=== PATIENT | female | born 1945 | race Caucasian/White ===

== ENCOUNTER 2020-12-12 08:06 | Emergency (ER) | payer MEDICARE, OTHER ==
[~2020-12-12] VITALS: Ht 157.5 cm; Wt 58.5 kg
--- NOTE | 2020-12-12 08:24 | NUR ---
[id number] FOR VOMITING X 1 WK. PT WAS SEEN AT [facility] AT [facility] TWICE THIS WK FOR N/V. ADMITS SMOKING MARIJUANA REGULARLY. PT AAOX4, VSS. RR EVEN & UNLABORED. DENIES CP, SOB, DIZZINESS AT THIS TIME. AWAITING EVAL BY DELFIN. WILL CONT TO MONITOR.
[2020-12-12] MEDS ORDERED: IV NS 0.9% 500 ML BAG IV ONE (08:30)
[2020-12-12] MEDS ORDERED: METOCLOPRAMIDE HCL 10 MG/2 ML VIAL IV ONE (08:30)
[2020-12-12] MEDS ORDERED: FAMOTIDINE/PF INJ 20 MG/2 ML VIAL IV ONE ×2 (08:30→08:32)
[2020-12-12] MEDS ORDERED: ONDANSETRON HCL/PF 4 MG/2 ML VIAL IVP ONE (08:30)
[2020-12-12] MEDS ORDERED: ONDANSETRON HCL/PF 4 MG/2 ML VIAL ONE (08:31)
[2020-12-12] MEDS ORDERED: METOCLOPRAMIDE HCL 10 MG/2 ML VIAL ONE (08:32)
[2020-12-12 08:43] LABS: BASOPHILS # (AUTO) 0.1 /CMM (0.0-0.2); BASOPHILS % (AUTO) 0.8 % (0.0-2.0); EOSINOPHILS % (AUTO) 0.5 % (0.0-6.0); HEMATOCRIT 42 % (33-45); HEMOGLOBIN 13.5 g/dL (11.5-14.8); LYMPHOCYTES # (AUTO) 2.1 /CMM (0.8-4.8); LYMPHOCYTES % (AUTO) 25.7 % (20.0-44.0); MEAN CORPUSCULAR HGB CONC 32 g/dl (31.0-36.0); MEAN CORPUSCULAR VOLUME 77 fL (82-100); MONOCYTES # (AUTO) 0.4 /CMM (0.1-1.30); MONOCYTES % (AUTO) 4.7 % (2.0-12.0); NEUTROPHILS # (AUTO) 5.6 /CMM (1.8-8.9); NEUTROPHILS % (AUTO) 68.3 % (43.0-81.0); PLATELET COUNT (AUTO) 360 /CMM (150-450); WHITE BLOOD COUNT (AUTO) 8.3 K/uL (4.3-11.0)
[2020-12-12 09:20] LABS: ALANINE AMINOTRANSFERASE 29 U/L (12-78); ALBUMIN 3.9 g/dL (3.4-5.0); ALKALINE PHOSPHATASE 105 U/L (46-116); ASPARTATE AMINOTRANSFERASE 40 U/L (15-37); BILIRUBIN,TOTAL 0.6 mg/dL (0.2-1.0); CALCIUM, SERUM 9.7 mg/dL (8.5-10.1); CARBON DIOXIDE 20 mmol/L (21-32); CHLORIDE 101 mmol/L (98-107); CREATININE 1.2 mg/dL (0.6-1.3); GLUCOSE 160 mg/dL (74-106); LIPASE 101 U/L (73-393); SODIUM SERUM 138 mmol/L (136-145); TOTAL PROTEIN, SERUM 8.8 g/dL (6.4-8.2); UREA NITROGEN, BLOOD 11 mg/dL (7-18)
[2020-12-12 09:37] LABS: BILIRUBIN,DIRECT 0.1 mg/dL (0.0-0.2)
[2020-12-12] MEDS ORDERED: METO-295 PO (10:42)
[2020-12-12] MEDS ORDERED: ONDA4TAB11 PO (10:42)
--- NOTE | 2020-12-12 11:31 | NUR ---
CALLED [facility] FOR TRANSPORT TO [facility]. ETA 30-45 MINUTES.
--- NOTE | 2020-12-12 11:48 | NUR ---
Patient discharged to home in stable condition. Written and verbal after care instructions given. Patient verbalizes understanding of instruction. IV removed. Catheter intact and site benign. Pressure and 4x4 applied to site. No bleeding noted.
[2020-12-12 11:49] VITALS: BP 108/67
== END 2020-12-12 11:49 | disposition home or self-care (01) ==
LOC: ER 08:11
DX: R11.10 Vomiting, unspecified (principal); F12.10 Cannabis abuse, uncomplicated; Z60.2 Problems related to living alone
CPT/HCPCS: 36415; 80048; 80076; 83690; 84484; 85025; 96374; 96375; 99284; J2405; J2765; J3490; J7040

== ENCOUNTER 2021-11-22 15:30 | Emergency (ER) | payer MEDICARE, OTHER ==
[~2021-11-22] VITALS: Ht 165.1 cm; Wt 55.8 kg
[~2021-11-22 15:30] MED LIST: METO-295 PO; ONDA4TAB11 PO
--- NOTE | 2021-11-22 16:00 | NUR ---
ANETTE RA889 From Home "Generalized weakness xcouple days, No appetite, BS-94". PLACED ON BED, AAOX2, RESPONDS TO VERBAL STIMULI, COMPLAINS OF ABDOMINAL PAIN.
--- NOTE | 2021-11-22 16:15 | NUR ---
AT BED SIDE
--- NOTE | 2021-11-22 16:25 | NUR ---
BLOOD DRAWN AND SENT TO LAB
--- NOTE | 2021-11-22 16:27 | NUR ---
PATIENT WENT FOR CT [facility]BD[facility]
[2021-11-22] MEDS ORDERED: IV NS 0.9% 1,000 ML IV ONE (16:30)
[2021-11-22 16:31] LABS: BASOPHILS % (AUTO) 0.7 % (0.0-2.0); EOSINOPHILS % (AUTO) 3.7 % (0.0-6.0); HEMATOCRIT 37 % (33-45); HEMOGLOBIN 12.2 g/dL (11.5-14.8); LYMPHOCYTES % (AUTO) 41.6 % (20.0-44.0); MEAN CORPUSCULAR HGB CONC 33 g/dl (31.0-36.0); MEAN CORPUSCULAR VOLUME 83 fL (82-100); MONOCYTES # (AUTO) 0.4 K/uL (0.1-1.30); MONOCYTES % (AUTO) 5.2 % (2.0-12.0); NEUTROPHILS # (AUTO) 3.5 K/uL (1.8-8.9); NEUTROPHILS % (AUTO) 48.8 % (43.0-81.0); PLATELET COUNT (AUTO) 205 K/uL (150-450); RED BLOOD CELL COUNT(AUTO) 4.48 MIL/uL (4.0-5.2); WHITE BLOOD COUNT (AUTO) 7.2 K/uL (4.3-11.0)
--- NOTE | 2021-11-22 16:35 | NUR ---
PATIENT BACK FROM CT
[2021-11-22] MEDS ORDERED: IOHEXOL-300 100 ML VIAL IV ONE (17:19)
[2021-11-22 19:03] LABS: SERUM AMMONIA 17 umol/L (11-32)
[2021-11-22 19:08] LABS: ALANINE AMINOTRANSFERASE 27 U/L (12-78); ALBUMIN 3.5 g/dL (3.4-5.0); ALKALINE PHOSPHATASE 73 U/L (46-116); ASPARTATE AMINOTRANSFERASE 40 U/L (15-37); BILIRUBIN,DIRECT 0.1 mg/dL (0.0-0.2); BILIRUBIN,TOTAL 0.4 mg/dL (0.2-1.0); CHLORIDE 107 mmol/L (98-107); CREATININE 0.9 mg/dL (0.6-1.3); GLUCOSE 77 mg/dL (74-106); POTASSIUM 3.6 mmol/L (3.5-5.1); SODIUM SERUM 142 mmol/L (136-145); TOTAL PROTEIN, SERUM 7.4 g/dL (6.4-8.2); UREA NITROGEN, BLOOD 15 mg/dL (7-18)
--- NOTE | 2021-11-22 19:11 | NUR ---
pt's landlord: karsten patterson [phone] & stated pt 's family is not really involved w/ her care & alos stated pt lives w/ her.
--- NOTE | 2021-11-22 19:41 | NUR ---
PATIENT WENT FOR CT CHEST VIA [facility]
[2021-11-22] MEDS ORDERED: LEVO750T46 PO (20:40)
[2021-11-22 20:50] LABS: CALCIUM, SERUM 9.2 mg/dL (8.5-10.1); CARBON DIOXIDE 22 mmol/L (21-32)
--- NOTE | 2021-11-22 20:56 | NUR ---
[facility] ETA 1 HOUR.
[2021-11-22 22:03] LABS: CREATINE KINASE, TOTAL 335 U/L (26-192)
--- NOTE | 2021-11-22 22:20 | NUR ---
IV removed. Catheter intact and site benign. Pressure and 4x4 applied to site. No bleeding noted.Patient discharged to home in stable condition. Written and verbal after care instructions given. Patient verbalizes understanding of instruction.
[2021-11-22 22:35] VITALS: BP 160/90
== END 2021-11-22 22:25 | disposition home or self-care (01) ==
LOC: ER 15:35
DX: R53.1 Weakness (principal); J18.9 Pneumonia, unspecified organism; Z86.69 Personal history of other diseases of the nervous system and sense organs; Z60.2 Problems related to living alone; Z79.899 Other long term (current) drug therapy
CPT/HCPCS: 71045; 71260; 74176; 76705; 80048; 80076; 82140; 82550; 82962; 83880; 84443; 84484; 85025; 96360; 99285; J7030; Q9967; 36415; 82553

== ENCOUNTER 2022-01-14 15:43 | Emergency (ER) | payer MEDICARE, OTHER ==
[~2022-01-14] VITALS: Ht 162.6 cm; Wt 52.6 kg
[~2022-01-14 15:43] MED LIST changes: +LEVO750T46 PO
--- NOTE | 2022-01-14 16:00 | NUR ---
[id number] FOR C/O LEFT FOOT, RIGHT SHOULDER, AND RIGHT HIP PAIN. PAIN 10/10 PER PT. VERBALLY RESPONSIVE. TO ER BED 15.
[2022-01-14 16:49] VITALS: BP 126/77
[2022-01-14] MEDS ORDERED: HYDROCODONE/APAP 5/325MG TABLET ONE (16:51)
[2022-01-14] MEDS ORDERED: HYDROCODONE/APAP 5/325MG TABLET PO ONE (17:00)
--- NOTE | 2022-01-14 17:44 | NUR ---
1930 ETA BLS TRANSPORT VIA [facility].
--- NOTE | 2022-01-14 18:06 | NUR ---
PT REPORT GIVEN TO VALENTIN DON SALES REPRESENTATIVE [employer] FIBERS AT [facility] ([phone]).
--- NOTE | 2022-01-14 18:49 | NUR ---
Patient discharged back to [facility] in stable condition. Endorsement given to EMT. Written and verbal after care instructions given. Patient verbalizes understanding of instruction, unable to sign form.
== END 2022-01-14 18:53 ==
LOC: ER 15:53
DX: G89.29 Other chronic pain (principal); M25.572 Pain in left ankle and joints of left foot; K21.9 Gastro-esophageal reflux disease without esophagitis; Z86.69 Personal history of other diseases of the nervous system and sense organs; Z87.440 Personal history of urinary (tract) infections; Z79.899 Other long term (current) drug therapy
CPT/HCPCS: 73610-TC

== ENCOUNTER 2022-10-27 16:58 | Inpatient (IN) | payer MEDICARE, OTHER ==
[~2022-10-27] VITALS: Ht 157.5 cm; Wt 59.6 kg
--- NOTE | 2022-10-27 17:30 | NUR ---
[id number] FOR RLQ ABDOMINAL PAIN AND DIARRHEA X 2 DAYS.
--- NOTE | 2022-10-27 18:54 | NUR ---
PHYLLIS [phone] FRIEND AND LANDLORD.
--- NOTE | 2022-10-27 18:54 | NUR ---
BLOOD DRAWN AND SENT TO LAB
--- NOTE | 2022-10-27 19:17 | NUR ---
URINE SAMPLE SENT TO LAB
--- NOTE | 2022-10-27 19:20 | NUR ---
PATIENT TAKEN TO CT VIA [facility]
[2022-10-27 19:21] LABS: BASOPHILS % (AUTO) 0.7 % (0.0-2.0); EOSINOPHILS % (AUTO) 1.9 % (0.0-6.0); HEMATOCRIT 46 % (33-45); HEMOGLOBIN 14.9 g/dL (11.5-14.8); LYMPHOCYTES # (AUTO) 2.1 K/uL (0.8-4.8); LYMPHOCYTES % (AUTO) 35.4 % (20.0-44.0); MEAN CORPUSCULAR HGB CONC 33 g/dl (31.0-36.0); MEAN CORPUSCULAR VOLUME 93 fL (82-100); MONOCYTES # (AUTO) 0.3 K/uL (0.1-1.30); MONOCYTES % (AUTO) 4.7 % (2.0-12.0); NEUTROPHILS # (AUTO) 3.4 K/uL (1.8-8.9); NEUTROPHILS % (AUTO) 57.3 % (43.0-81.0); PLATELET COUNT (AUTO) 192 K/uL (150-450); RED BLOOD CELL COUNT(AUTO) 4.93 MIL/uL (4.0-5.2); WHITE BLOOD COUNT (AUTO) 5.9 K/uL (4.3-11.0)
[2022-10-27 19:42] LABS: CALCIUM, SERUM 9.4 mg/dL (8.5-10.1); CREATININE 0.8 mg/dL (0.6-1.3)
[2022-10-27 19:49] LABS: ALBUMIN 3.7 g/dL (3.4-5.0); BILIRUBIN,DIRECT 0.2 mg/dL (0.0-0.2); BILIRUBIN,TOTAL 0.6 mg/dL (0.2-1.0); TOTAL PROTEIN, SERUM 8.3 g/dL (6.4-8.2)
[2022-10-27 20:23] LABS: BILIRUBIN,URINE NEGATIVE (NEGATIVE); COLOR,URINE YELLOW (YELLOW); LEUKOCYTE ESTERASE ,URINE NEGATIVE (NEGATIVE); NITRITE, URINE NEGATIVE (NEGATIVE); PROTEIN,URINE NEGATIVE (NEGATIVE); UGLUCOSE NEGATIVE (NEGATIVE)
[2022-10-27 20:34] LABS: BACTERIA,URINE None seen /HPF (None Seen); MUCUS,URINE Many /LPF (None Seen); RBC,URINE 0-2 /HPF (0-2); WBC,URINE 0-2 /HPF (0-3)
[2022-10-27] MEDS ORDERED: IOHEXOL-350 100 ML VIAL IV ONE (20:50)
[2022-10-27] MEDS ORDERED: IV NS 0.9% 250 ML IV ONE (20:51)
[2022-10-27] MEDS ORDERED: CT SWABBABLE VALVE TRANS SET 1 EA INFUS.SET MC ONE (20:51)
[2022-10-27] MEDS ORDERED: HYDROMORPHONE 1 MG/1 ML DISP.SYRIN IV ONE (21:00)
[2022-10-27] MEDS ORDERED: ONDANSETRON HCL/PF - ER 4 MG/2 ML VIAL IV ONE (21:00)
[2022-10-27] MEDS ORDERED: ONDANSETRON HCL/PF 4 MG/2 ML VIAL ONE (21:05)
[2022-10-27] MEDS ORDERED: HYDROMORPHONE 1 MG/1 ML DISP.SYRIN ONE (21:06)
[2022-10-27] MEDS ORDERED: AZITHROMYCIN 500 MG VIAL ONE (22:10)
[2022-10-27] MEDS ORDERED: CEFTRIAXONE 1GM BAG (ER ONLY) 50 ML IV ONE ×2 (22:10→22:30)
[2022-10-27] MEDS ORDERED: MAGNESIUM HYDROXIDE 30 ML UDC PO PRN (22:30)
[2022-10-27] MEDS ORDERED: ACETAMINOPHEN 325 MG TABLET PO PRN (22:30)
[2022-10-27] MEDS ORDERED: MAG HYDROX/AL HYDROX/SIMETH 30 ML UDC PO PRN (22:30)
[2022-10-27] MEDS ORDERED: ZOLPIDEM TARTRATE 5 MG TABLET PO PRN (22:30)
[2022-10-27] MEDS ORDERED: AZITHROMYCIN 500 MG in IV D5W 250 ML IV ONE (22:30)
[2022-10-27] MEDS ORDERED: METOCLOPRAMIDE HCL 10 MG TABLET PO PRN (22:30)
[2022-10-27] MEDS ORDERED: Z GUARD REMEDY 4 OZ OINT TP PRN (22:30)
[2022-10-27] MEDS: ONDANSETRON HCL/PF 4 MG/2 ML VIAL IVP PRN (23:30)
[2022-10-28] MEDS: ONDANSETRON HCL/PF 4 MG/2 ML VIAL IVP PRN ×2 (00:24→20:04)
--- NOTE | 2022-10-28 00:26 | NUR ---
REPORT GIVEN TO VALENTIN SHEETS
--- NOTE | 2022-10-28 00:50 | NUR ---
MS CLINICAL DATA MANAGEMENT DIRECTOR NOTE RECEIVED REPORT FROM ER NURSE JOSELYN. PT IS BEING ADMITTED IN ROOM 314-2 FOR COMMUNITY ACQUIRED PNA, AND RETRACTABLE ABDOMINAL PAIN. PT A/O X4, ABLE TO MAKE NEEDS KNOWN. ABLE TO AMBULATE TO BATHROOM. PT C/O PAIN TO ABDOMEN, AND NAUSEA. NO RESPIRATORY DISTRESS NOTED. PT ON ROOM AIR. IV ACCESS TO RIGHT AC #20G, IV INTACT, AND PATENT, INFUSING NS AT 75 ML/HR. SKIN ASSESSMENT COMPLETED. PT'S SKIN IS INTACT. PT'S BELONGING VERIFIED, AND BELONGING LIST SIGNED, AND PLACED IN CHART. SAFETY MEASURES IN PLACE: BED IN LOW POSITION, SR UP X2, CALL LIGHT WITHIN REACH. WILL CONTINUE TO MONITOR PT.
[2022-10-28] MEDS: MORPHINE SULFATE INJ 2 MG/ML DISP.SYRIN IV PRN ×4 (03:04→20:03)
--- NOTE | 2022-10-28 03:04 | NUR ---
MS RN NOTE PT REPORT PAIN TO ABDOMEN. MORPHINE ADMINISTERED TO PT FOR PAIN.
--- NOTE | 2022-10-28 06:45 | NUR ---
MS RN CLOSING NOTE LEFT PT AWAKE, RESTING IN BED. PT A/O X4, ABLE TO MAKE NEEDS KNOWN. ABLE TO AMBULATE TO BATHROOM. NO RESPIRATORY DISTRESS NOTED. PT ON ROOM AIR. IV ACCESS TO RIGHT AC #20G, IV INTACT, AND PATENT, INFUSING NS AT 75 ML/HR. SAFETY MEASURES IN PLACE: BED IN LOW POSITION, SR UP X2, CALL LIGHT WITHIN REACH. WILL ENDORSE PT TO AM SHIFT NURSE FOR ALEJANDRA.
[2022-10-28 07:32] LABS: BASOPHILS % (AUTO) 0.1 % (0.0-2.0); EOSINOPHILS % (AUTO) 1.1 % (0.0-6.0); HEMATOCRIT 44 % (33-45); HEMOGLOBIN 14.6 g/dL (11.5-14.8); LYMPHOCYTES # (AUTO) 0.6 K/uL (0.8-4.8); LYMPHOCYTES % (AUTO) 7.5 % (20.0-44.0); MEAN CORPUSCULAR HGB CONC 33 g/dl (31.0-36.0); MEAN CORPUSCULAR VOLUME 91 fL (82-100); MONOCYTES # (AUTO) 0.3 K/uL (0.1-1.30); MONOCYTES % (AUTO) 3.9 % (2.0-12.0); NEUTROPHILS # (AUTO) 6.9 K/uL (1.8-8.9); NEUTROPHILS % (AUTO) 87.4 % (43.0-81.0); PLATELET COUNT (AUTO) 176 K/uL (150-450); RED BLOOD CELL COUNT(AUTO) 4.86 MIL/uL (4.0-5.2); WHITE BLOOD COUNT (AUTO) 7.9 K/uL (4.3-11.0)
--- NOTE | 2022-10-28 07:40 | NUR ---
MS RN OPENING NOTE RECEIVED PATIENT AWAKE IN BED, PT A/O X4, ABLE TO MAKE NEEDS KNOWN. ABLE TO AMBULATE TO BATHROOM. NO RESPIRATORY DISTRESS NOTED. PT ON ROOM AIR. IV ACCESS TO RIGHT AC #20G, IV INTACT, PATENT, AND INFUSING WELL. NS AT 75 ML/HR. SAFETY MEASURES IN PLACE: BED IN LOW POSITION, SIDE RAILS UP X2, CALL LIGHT WITHIN REACH. WILL CONTINUE TO MONITOR PATIENT.
--- NOTE | 2022-10-28 07:50 | NUR ---
RN NOTES PATIENT FEELS NAUSEA AND ASKED FOR MEDICATION. METOCLOPRAMIDE 10MG GIVEN.
[2022-10-28 08:00] VITALS: BP 150/83
[2022-10-28 08:01] LABS: ALBUMIN 3.4 g/dL (3.4-5.0); BILIRUBIN,TOTAL 0.5 mg/dL (0.2-1.0); CREATININE 0.7 mg/dL (0.6-1.3); MAGNESIUM 1.6 mg/dL (1.8-2.4); PHOSPHORUS 3.6 mg/dL (2.5-4.9); POTASSIUM 3.3 mmol/L (3.5-5.1); TOTAL PROTEIN, SERUM 7.7 g/dL (6.4-8.2)
[2022-10-28] MEDS ORDERED: PANTOPRAZOLE 40 MG VIAL IV SCH (09:00)
--- NOTE | 2022-10-28 09:05 | NUR ---
RN NOTES PATIENT COMPLAINED OF ABDOMINAL PAIN AND ASKED FOR PAIN MEDICATION. RATE IT /. MORPHINE 2MG GIVEN. WILL CONTINUE TO MONITOR PATIENT.
[2022-10-28] MEDS ORDERED: GABA300C PO (09:42)
[2022-10-28] MEDS ORDERED: PANT40TA49 PO (09:42)
[2022-10-28] MEDS ORDERED: LOSA50TA39 PO (09:42)
[2022-10-28] MEDS ORDERED: [UNRECOGNIZED DRUG - CODE] PO (09:42)
[2022-10-28] MEDS ORDERED: OXCA300T15 PO (09:42)
[2022-10-28] MEDS ORDERED: LEVE500T20 PO (09:42)
[2022-10-28] MEDS ORDERED: METO50TA16 PO (09:42)
[2022-10-28] MEDS ORDERED: TEMA15CA PO (09:42)
[2022-10-28] MEDS ORDERED: TRAZ150T75 PO (09:42)
[2022-10-28] MEDS ORDERED: HYDR-4077 PO (09:42)
[2022-10-28] MEDS ORDERED: POTASSIUM CHLORIDE 20 MEQ POWDER PACKET PO ONE (11:00)
[2022-10-28] MEDS: Magnesium 1GM/D5W 100ML PREMIX 100 ML IV SCH ×2 (12:09→13:40)
[2022-10-28] MEDS ORDERED: TEMAZEPAM 15 MG CAPSULE PO PRN (12:30)
[2022-10-28] MEDS ORDERED: IBUPROFEN 600 MG TABLET PO PRN (13:00)
[2022-10-28] MEDS: hydrALAZINE HCL 50 MG TABLET PO SCH ×2 (13:41→17:27)
[2022-10-28] MEDS: GABAPENTIN 300 MG CAPSULE PO SCH ×2 (13:42→17:26)
[2022-10-28 16:00] VITALS: BP 149/81
[2022-10-28] MEDS: OXCARBAZEPINE 150 MG TABLET PO SCH (17:26)
[2022-10-28] MEDS: LEVETIRACETAM (250 MG) 250 MG TABLET PO SCH (17:26)
[2022-10-28] MEDS: METOPROLOL TARTRATE 50 MG TABLET PO SCH (17:27)
[2022-10-28] MEDS: LEVOFLOXACIN 500 MG /D5W 100ML 500 MG in PREMIX 1 EA IV SCH (17:32)
--- NOTE | 2022-10-28 19:30 | NUR ---
MS RN OPENING NOTES RECEIVED PATIENT IN BED AWAKE, ALRT AND ORIENTED. A/O X 4. ABLE TO MAKE NEEDS KNOWN. ON RA, BREATHING EVEN AND UNLABORED, NO DISTRESS OR SOB NOTED AT THIS TIME. IV ACCESS TO RAC #20G RUNNING NS @ 75 ML/HR. PATIENT IS AMBULATORY. SAFETY MEASURES IN PLACE: BED IN LOWEST LOCKED POSITION. SIDE RAILS UP X2. CALL LIGHT WITHIN REACH. WILL CONTINUE WITH THE PLAN OF CARE AND CARRY OUT ACTIVE MD ORDERS.
--- NOTE | 2022-10-28 19:40 | NUR ---
MS RN CLOSING NOTE PATIENT AWAKE IN BED, RESTING. PT A/O X4, ABLE TO MAKE NEEDS KNOWN. ABLE TO AMBULATE TO BATHROOM. NO RESPIRATORY DISTRESS NOTED. NO COMPLAIN OF PAIN AT THIS TIME. PT ON ROOM AIR. IV ACCESS TO RIGHT AC #20G, IV INTACT, AND PATENT, INFUSING NS AT 75 ML/HR. SAFETY MEASURES IN PLACE: BED IN LOW POSITION, SR UP X2, CALL LIGHT WITHIN REACH. WILL ENDORSE PT TO PM SHIFT NURSE FOR ALEJANDRA.
[2022-10-28 20:00] VITALS: BP 171/87
[2022-10-28] MEDS ORDERED: CLONIDINE HCL 0.1 MG TABLET PO SCH (21:30)
[2022-10-28] MEDS: TRAZODONE 50 MG TABLET PO SCH (21:34)
[2022-10-28] MEDS ORDERED: CEFTRIAXONE 1 G in IV D5W 50 ML IV SCH (22:00)
[2022-10-28] MEDS ORDERED: AZITHROMYCIN 500 MG in IV D5W 250 ML IV SCH (22:00)
[2022-10-28 22:15] VITALS: BP 160/90
[2022-10-28 23:00] VITALS: BP 140/90
[2022-10-29] MEDS: MORPHINE SULFATE INJ 2 MG/ML DISP.SYRIN IV PRN ×3 (00:18→20:28)
[2022-10-29] MEDS: ONDANSETRON HCL/PF 4 MG/2 ML VIAL IVP PRN (01:35)
[2022-10-29 02:30] VITALS: BP 116/73
[2022-10-29] MEDS: IV NS 0.9% 1,000 ML IV PRN ×2 (03:59→13:44)
[2022-10-29 04:10] VITALS: BP 113/60
[2022-10-29] MEDS ORDERED: CLONIDINE HCL 0.1 MG TABLET PO PRN (05:30)
[2022-10-29 05:59] LABS: BASOPHILS % (AUTO) 0.3 % (0.0-2.0); EOSINOPHILS % (AUTO) 0.6 % (0.0-6.0); HEMATOCRIT 43 % (33-45); HEMOGLOBIN 14.1 g/dL (11.5-14.8); LYMPHOCYTES # (AUTO) 0.9 K/uL (0.8-4.8); LYMPHOCYTES % (AUTO) 13.4 % (20.0-44.0); MEAN CORPUSCULAR HGB CONC 33 g/dl (31.0-36.0); MEAN CORPUSCULAR VOLUME 90 fL (82-100); MONOCYTES # (AUTO) 0.3 K/uL (0.1-1.30); MONOCYTES % (AUTO) 4.3 % (2.0-12.0); NEUTROPHILS # (AUTO) 5.4 K/uL (1.8-8.9); NEUTROPHILS % (AUTO) 81.4 % (43.0-81.0); PLATELET COUNT (AUTO) 183 K/uL (150-450); RED BLOOD CELL COUNT(AUTO) 4.71 MIL/uL (4.0-5.2); WHITE BLOOD COUNT (AUTO) 6.6 K/uL (4.3-11.0)
[2022-10-29 06:19] LABS: CARBON DIOXIDE 23 mmol/L (21-32); CHLORIDE 99 mmol/L (98-107); CREATININE 0.7 mg/dL (0.6-1.3); GLUCOSE 95 mg/dL (74-106); PHOSPHORUS 4.1 mg/dL (2.5-4.9); POTASSIUM 3.9 mmol/L (3.5-5.1); SODIUM SERUM 133 mmol/L (136-145); UREA NITROGEN, BLOOD 11 mg/dL (7-18)
--- NOTE | 2022-10-29 06:56 | NUR ---
MS RN CLOSING NOTES PATIENT IN BED, SLEEPING. EASILY BE AWAKEN BY VERBAL STIMULI. A/O X 4. ABLE TO MAKE NEEDS KNOWN. ON RA, BREATHING EVEN AND UNLABORED, NO DISTRESS OR SOB NOTED AT THIS TIME. IV ACCESS TO RAC #20G RUNNING NS @ 75 ML/HR. ALL NEEDS ATTENDED. CARRIED OUT ACTIVE MD ORDERS. PATIENT IS AMBULATORY. SAFETY MEASURES MAINTAINED. WILL ENDORSE TO THE NEXT SHIFT.
[2022-10-29] MEDS: PANTOPRAZOLE 40 MG TABLET.DR PO SCH (07:32)
--- NOTE | 2022-10-29 07:43 | NUR ---
MS RN OPENING NOTES RECEIVED PATIENT AWAKE IN BED AWAKE, A/O X 4. ABLE TO MAKE NEEDS KNOWN. ON RA, BREATHING EVEN AND UNLABORED, NO DISTRESS OR SOB NOTED AT THIS TIME. IV ACCESS TO RAC #20G RUNNING NS @ 75 ML/HR. PATIENT IS AMBULATORY. SAFETY MEASURES IN PLACE: BED IN LOWEST LOCKED POSITION. SIDE RAILS UP X2. CALL LIGHT WITHIN REACH. WILL CONTINUE WITH THE PLAN OF CARE AND CARRY OUT ACTIVE MD ORDERS.
[2022-10-29] MEDS: OXCARBAZEPINE 150 MG TABLET PO SCH ×2 (09:19→17:34)
[2022-10-29] MEDS: LEVETIRACETAM (250 MG) 250 MG TABLET PO SCH ×2 (09:20→17:31)
[2022-10-29] MEDS: GABAPENTIN 300 MG CAPSULE PO SCH ×3 (09:25→17:33)
[2022-10-29] MEDS: hydrALAZINE HCL 50 MG TABLET PO SCH ×3 (09:27→17:32)
[2022-10-29] MEDS: METOPROLOL TARTRATE 50 MG TABLET PO SCH ×2 (09:28→17:33)
[2022-10-29] MEDS: LOSARTAN POTASSIUM 50 MG TABLET PO SCH (09:28)
--- NOTE | 2022-10-29 10:57 | NUR ---
RN NOTES PATIENT COMPLAINED OF ABDOMINAL PAIN. RATE IT 02/08. PATIENT ASKED FOR PAIN MEDICATION. MORPHINE GIVEN 2MG. WILL CONTINUE TO MONITOR PATIENT.
[2022-10-29] MEDS ORDERED: KETOROLAC TROMETHAMINE INJ 30 MG/ML VIAL IV PRN (12:30)
[2022-10-29] MEDS: LEVOFLOXACIN 500 MG /D5W 100ML 500 MG in PREMIX 1 EA IV SCH (17:03)
--- NOTE | 2022-10-29 18:57 | NUR ---
RN NOTES PATIENT IN BED, SLEEPING. EASILY BE AWAKEN BY VERBAL STIMULI. A/O X 4. ABLE TO MAKE NEEDS KNOWN. ON RA, BREATHING EVEN AND UNLABORED, NO DISTRESS NOTED, NO SOB OR PAIN AT THIS TIME. IV ACCESS TO RAC #20G RUNNING NS @ 75 ML/HR. SAFETY MEASURES IN PLACE. KEPT BED IN LOCKED AND IN LOW POSITION. SIDE RAILS UP X2. ADVISED TO USE THE CALL LIGHT WHEN IN NEED OF ASSISTANCE. ALL NURSING NEEDS ATTENDED. WILL ENDORSE TO THE OPTICAL INSTRUMENT REPAIRER FOR CONTINUITY OF CARE.
--- NOTE | 2022-10-29 19:45 | NUR ---
MS RN OPENING NOTES RECEIVED PATIENT AWAKE IN BED AWAKE, ALERT AND ORIENTED. A/O X 4. ABLE TO MAKE NEEDS KNOWN. ON RA, BREATHING EVEN AND UNLABORED, NO DISTRESS OR SOB NOTED AT THIS TIME. IV ACCESS TO RAC #20G RUNNING NS @ 75 ML/HR. PATIENT IS AMBULATORY. SAFETY MEASURES IN PLACE WITH BED IN LOWEST LOCKED POSITION. SIDE RAILS UP X2. CALL LIGHT WITHIN REACH. WILL CONTINUE WITH THE PLAN OF CARE AND CARRY OUT ACTIVE MD ORDERS.
[2022-10-29 20:26] VITALS: BP 107/60
[2022-10-29] MEDS: TRAZODONE 50 MG TABLET PO SCH (22:26)
[2022-10-30] MEDS: ONDANSETRON HCL/PF 4 MG/2 ML VIAL IVP PRN ×2 (00:32→06:04)
[2022-10-30 01:00] VITALS: BP 125/62
[2022-10-30] MEDS: MORPHINE SULFATE INJ 2 MG/ML DISP.SYRIN IV PRN ×4 (01:26→16:55)
[2022-10-30] MEDS: IV NS 0.9% 1,000 ML IV PRN ×2 (04:14→16:58)
[2022-10-30 06:15] LABS: BASOPHILS % (AUTO) 0.5 % (0.0-2.0); EOSINOPHILS % (AUTO) 2.8 % (0.0-6.0); HEMATOCRIT 38 % (33-45); HEMOGLOBIN 12.7 g/dL (11.5-14.8); LYMPHOCYTES % (AUTO) 37.3 % (20.0-44.0); MEAN CORPUSCULAR HGB CONC 33 g/dl (31.0-36.0); MEAN CORPUSCULAR VOLUME 91 fL (82-100); MONOCYTES # (AUTO) 0.4 K/uL (0.1-1.30); MONOCYTES % (AUTO) 7.8 % (2.0-12.0); NEUTROPHILS # (AUTO) 2.7 K/uL (1.8-8.9); NEUTROPHILS % (AUTO) 51.6 % (43.0-81.0); PLATELET COUNT (AUTO) 160 K/uL (150-450); RED BLOOD CELL COUNT(AUTO) 4.19 MIL/uL (4.0-5.2); WHITE BLOOD COUNT (AUTO) 5.2 K/uL (4.3-11.0)
--- NOTE | 2022-10-30 06:41 | NUR ---
MS RN CLOSING NOTES PATIENT AWAKE IN BED AWAKE, ALERT AND ORIENTED. A/O X 4. ABLE TO MAKE NEEDS KNOWN. ON RA, BREATHING EVEN AND UNLABORED, NO DISTRESS OR SOB NOTED AT THIS TIME. IV ACCESS TO RAC #20G RUNNING NS @ 75 ML/HR. PATIENT IS AMBULATORY. SAFETY MEASURES MAINTAINED. ALL NEEDS ATTENDED AND CARRIED OUT ACTIVE MD ORDERS. SAFETY PRECAUTIONS MAINTAINED. WILL ENDORSE TO THE NEXT SHIFT.
[2022-10-30 07:01] LABS: CALCIUM, SERUM 8.6 mg/dL (8.5-10.1); CARBON DIOXIDE 23 mmol/L (21-32); CHLORIDE 103 mmol/L (98-107); CREATININE 0.8 mg/dL (0.6-1.3); GLUCOSE 71 mg/dL (74-106); MAGNESIUM 1.9 mg/dL (1.8-2.4); PHOSPHORUS 3.4 mg/dL (2.5-4.9); POTASSIUM 3.9 mmol/L (3.5-5.1); SODIUM SERUM 135 mmol/L (136-145); UREA NITROGEN, BLOOD 16 mg/dL (7-18)
--- NOTE | 2022-10-30 07:48 | NUR ---
MS RN OPENING NOTES PATIENT AWAKE IN BED AWAKE, ALERT AND ORIENTED. A/O X 4. ABLE TO MAKE NEEDS KNOWN. ON RA, BREATHING EVEN AND UNLABORED, NO DISTRESS OR SOB NOTED AT THIS TIME. IV ACCESS TO RAC #20G RUNNING NS @ 75 ML/HR. PATIENT IS AMBULATORY. SAFETY MEASURES MAINTAINED. SAFETY PRECAUTIONS MAINTAINED. WILL CONTINUE TO MONITOR.
[2022-10-30] MEDS: PANTOPRAZOLE 40 MG TABLET.DR PO SCH (07:56)
[2022-10-30] MEDS: GABAPENTIN 300 MG CAPSULE PO SCH ×3 (08:31→16:35)
[2022-10-30] MEDS: LEVETIRACETAM (250 MG) 250 MG TABLET PO SCH ×2 (08:31→16:37)
[2022-10-30] MEDS: OXCARBAZEPINE 150 MG TABLET PO SCH ×2 (08:31→16:37)
[2022-10-30] MEDS: hydrALAZINE HCL 50 MG TABLET PO SCH ×3 (08:32→16:36)
[2022-10-30] MEDS: LOSARTAN POTASSIUM 50 MG TABLET PO SCH (08:32)
[2022-10-30] MEDS: METOPROLOL TARTRATE 50 MG TABLET PO SCH ×2 (08:33→16:36)
[2022-10-30] MEDS: LEVOFLOXACIN (250MG) 250 MG TABLET PO SCH (16:39)
--- NOTE | 2022-10-30 18:28 | NUR ---
MS RN CLOSING NOTES PATIENT AWAKE IN BED AWAKE, ALERT AND ORIENTED. A/O X 4. ABLE TO MAKE NEEDS KNOWN. ON RA, BREATHING EVEN AND UNLABORED, NO DISTRESS OR SOB NOTED AT THIS TIME. IV ACCESS TO RAC #20G RUNNING NS @ 75 ML/HR. PATIENT IS AMBULATORY. ENCOURAGED PATIENT TO COUGH FOR THE AFB CULTURE SMEAR, HOWEVER, PATIENT STATED SHE CAN'T COUGH. SAFETY MEASURES MAINTAINED. ALL NEEDS ATTENDED AND CARRIED OUT ACTIVE MD ORDERS. SAFETY PRECAUTIONS MAINTAINED. WILL ENDORSE TO THE NEXT SHIFT.
--- NOTE | 2022-10-30 18:53 | NUR ---
RN NOTES MADE A FOLLOW UP TO RESPIRATORY THERAPIST(GWEN) FOR THE SPUTUM INDUCTION PROCEDURE. TO MONITOR.
[2022-10-30 20:00] VITALS: BP 123/70
--- NOTE | 2022-10-30 20:08 | NUR ---
RN Opening Notes Received pt in bed, asleep, awakens to verbal stimuli. AOx4, able to make needs known. On RA and tolerating well. No SOB noted. No s/sx of respiratory distress noted. IV access in RAC #20G running NS @ 75 mL/hr. Safety precautions in place: bed in lowest, locked position, siderails upX2, and brakes on. Table and call light within reach. All needs met at this time.
--- NOTE | 2022-10-30 21:00 | NUR ---
RT NOTE ATTEMPTED TO RETRIEVE SPUTUM SAMPLE. EXPLAINED TO PT THE REASON FOR NEEDING SAMPLE AND INSTRUCTED HER TO COUGH UP SECRETIONS. PT STATES SHE CAN NOT @ THIS TIME AND IS REFUSING NASAL SUCTIONING. RN AWARE.
--- NOTE | 2022-10-30 21:06 | NUR ---
RN Notes Patient needs sputum sample. RTJames, went in to collect sample but patient refused to expectorate or be suctioned.
[2022-10-30] MEDS: TRAZODONE 50 MG TABLET PO SCH (21:37)
--- NOTE | 2022-10-30 22:45 | NUR ---
RN Notes Educated patient on why she was in airborne room and the need for the sputum sample to rule out tuberculosis. Patient said "no I am not able cough and give you the sample." Made patient aware that we can suction to get the sample but she said "and have you stick that tube down my nose? it is going to hurt! no! " Asked the patient if we can try later but she ignored nurse.
--- NOTE | 2022-10-31 03:10 | NUR ---
RN Notes Tried to collect sputum sample again but patient refused.
[2022-10-31] MEDS: IV NS 0.9% 1,000 ML IV PRN ×2 (05:42→16:22)
[2022-10-31] MEDS: MORPHINE SULFATE INJ 2 MG/ML DISP.SYRIN IV PRN ×3 (06:04→16:26)
--- NOTE | 2022-10-31 06:05 | NUR ---
RN Notes Administered morphine for pain per MD order. VS WNL.
[2022-10-31 06:36] LABS: BASOPHILS % (AUTO) 0.3 % (0.0-2.0); EOSINOPHILS % (AUTO) 2.3 % (0.0-6.0); HEMATOCRIT 39 % (33-45); HEMOGLOBIN 12.7 g/dL (11.5-14.8); LYMPHOCYTES # (AUTO) 1.3 K/uL (0.8-4.8); MEAN CORPUSCULAR HGB CONC 33 g/dl (31.0-36.0); MEAN CORPUSCULAR VOLUME 93 fL (82-100); MONOCYTES # (AUTO) 0.3 K/uL (0.1-1.30); NEUTROPHILS # (AUTO) 2.9 K/uL (1.8-8.9); NEUTROPHILS % (AUTO) 63.4 % (43.0-81.0); PLATELET COUNT (AUTO) 156 K/uL (150-450); RED BLOOD CELL COUNT(AUTO) 4.19 MIL/uL (4.0-5.2); WHITE BLOOD COUNT (AUTO) 4.6 K/uL (4.3-11.0)
--- NOTE | 2022-10-31 06:52 | NUR ---
RN Closing Notes Pt in bed, asleep, awakens to verbal stimuli. AOx4, able to make needs known. On RA and tolerating well. No SOB noted. No s/sx of respiratory distress noted. IV access in RAC #20G running NS @ 75 mL/hr. All orders carried out. All needs met. Pt kept clean and dry. Treated pain once during shift. Safety precautions in place: bed in lowest, locked position, siderails upX2, and brakes on. Table and call light within reach. Will endorse to oncoming shift for ALEJANDRA.
[2022-10-31 07:03] LABS: CALCIUM, SERUM 8.2 mg/dL (8.5-10.1); CARBON DIOXIDE 20 mmol/L (21-32); CHLORIDE 102 mmol/L (98-107); CREATININE 0.6 mg/dL (0.6-1.3); GLUCOSE 64 mg/dL (74-106); MAGNESIUM 1.5 mg/dL (1.8-2.4); PHOSPHORUS 3.3 mg/dL (2.5-4.9); POTASSIUM 3.7 mmol/L (3.5-5.1); SODIUM SERUM 135 mmol/L (136-145); UREA NITROGEN, BLOOD 13 mg/dL (7-18)
[2022-10-31] MEDS: PANTOPRAZOLE 40 MG TABLET.DR PO SCH (07:38)
--- NOTE | 2022-10-31 07:58 | NUR ---
RN Opening Notes Pt awake in bed, AOx4, able to make needs known. On RA and tolerating well. No SOB noted. No s/sx of respiratory distress noted. IV access in RAC #20G running NS @ 75 mL/hr. Sputum sample collected, stored in the fridge, notified laboratory for citrus picker. Will monitor. Safety precautions in place: bed in lowest, locked position, siderails upX2, and brakes on. Table and call light within reach. Will continue to monitor patient.
[2022-10-31 08:00] VITALS: BP 137/60
[2022-10-31] MEDS: LEVOFLOXACIN (250MG) 250 MG TABLET PO SCH (08:38)
[2022-10-31] MEDS: hydrALAZINE HCL 50 MG TABLET PO SCH ×3 (08:38→16:15)
[2022-10-31] MEDS: LOSARTAN POTASSIUM 50 MG TABLET PO SCH (08:38)
[2022-10-31] MEDS: METOPROLOL TARTRATE 50 MG TABLET PO SCH ×2 (08:39→16:14)
[2022-10-31] MEDS: OXCARBAZEPINE 150 MG TABLET PO SCH ×2 (08:39→16:13)
[2022-10-31] MEDS: LEVETIRACETAM (250 MG) 250 MG TABLET PO SCH ×2 (08:39→16:13)
[2022-10-31] MEDS: GABAPENTIN 300 MG CAPSULE PO SCH ×3 (08:39→16:13)
[2022-10-31] MEDS: Magnesium 1GM/D5W 100ML PREMIX 100 ML IV SCH ×2 (10:15→11:07)
--- NOTE | 2022-10-31 12:49 | NUR ---
RN NOTES HYDRALAZINE WAS HELD DUE TO BP IS 110/80, NOTIFIED DR. BERNARD. WILL MONITOR.
--- NOTE | 2022-10-31 15:42 | NUR ---
RN NOTES RECEIVED A CALL FROM LABORATORY THAT PATIENT'S SPUTUM SAMPLE WAS NOT ENOUGH, NOTIFIED RESPIRATORY THERAPIST TO COLLECT AGAIN AT LEAST 5ML. WILL MONITOR.
[2022-10-31 16:00] VITALS: BP 123/60
--- NOTE | 2022-10-31 16:33 | NUR ---
RN NOTES COLLECTED SPUTUM DONE BY RT, NOTIFIED LABORATORY FOR HAIR SPECIALIST OF THE SPECIMEN. WILL MONITOR.
--- NOTE | 2022-10-31 18:51 | NUR ---
MS RN CLOSING NOTES Pt in bed, asleep, awakens to verbal stimuli. AOx4, able to make needs known. On RA and tolerating well. No SOB noted. No s/sx of respiratory distress noted. IV access in RAC #20G running NS @ 75 mL/hr. All orders carried out. All needs met. Pt kept clean and dry. Notified Dr. Joseph of the TB test result, awaits response. Safety precautions in place: bed in lowest, locked position, siderails upX2, and brakes on. Table and call light within reach. Will endorse to oncoming shift for ALEJANDRA.
[2022-10-31 20:00] VITALS: BP 115/50
[2022-10-31] MEDS: TRAZODONE 50 MG TABLET PO SCH (22:19)
[2022-11-01] MEDS: MORPHINE SULFATE INJ 2 MG/ML DISP.SYRIN IV PRN ×3 (05:11→23:15)
[2022-11-01] MEDS: IV NS 0.9% 1,000 ML IV PRN (05:11)
--- NOTE | 2022-11-01 05:12 | NUR ---
RN Notes Administered morphine per MD order. VS WNL.
--- NOTE | 2022-11-01 06:39 | NUR ---
RN Closing Notes Pt in bed, awak, watching TV. AOx4, able to make needs known. On RA and tolerating well. No SOB noted. No s/sx of respiratory distress noted. IV access in RAC #20G running NS @ 75 mL/hr. All orders carried out. All needs met. Pt kept clean and dry. Treated pain throughout shift. Safety precautions in place: bed in lowest, locked position, siderails upX2, and brakes on. Table and call light within reach. Will endorse to oncoming shift for ALEJANDRA.
[2022-11-01 07:00] VITALS: BP 147/81
--- NOTE | 2022-11-01 07:13 | NUR ---
MS RN OPENING NOTES RECEIVED PATIENT AWAKE IN BED AWAKE, ALERT AND ORIENTED. AOX4. ABLE TO MAKE NEEDS KNOWN AND FOLLOW SIMPLE COMMANDS. ON ROOM AIR BREATHING EVEN WITHOUT DIFFICULTY. NO ACUTE DISTRESS OR SOB NOTED AT THIS TIME. IV ACCESS ON RAC G#20 RUNNING NS @ 75 ML/HR. DENIES PAIN NOR DISCOMFORT AT THIS TIME. SAFETY MEASURES IN PLACE: BED IN LOWEST AND LOCKED POSITION, BED ALARM ON, SIDE RAILS UP 2X, CALL LIGHT AND TRAY TABLE WITHIN EASY REACH. WILL CONTINUE TO MONITOR.
[2022-11-01] MEDS: PANTOPRAZOLE 40 MG TABLET.DR PO SCH (07:50)
[2022-11-01] MEDS: METOPROLOL TARTRATE 50 MG TABLET PO SCH ×2 (09:00→17:00)
[2022-11-01] MEDS: OXCARBAZEPINE 150 MG TABLET PO SCH ×2 (09:00→17:36)
[2022-11-01] MEDS: LEVETIRACETAM (250 MG) 250 MG TABLET PO SCH ×2 (09:07→17:36)
[2022-11-01] MEDS: LOSARTAN POTASSIUM 50 MG TABLET PO SCH (09:10)
[2022-11-01] MEDS: GABAPENTIN 300 MG CAPSULE PO SCH ×3 (09:10→17:35)
[2022-11-01] MEDS: hydrALAZINE HCL 50 MG TABLET PO SCH ×3 (09:11→17:00)
[2022-11-01] MEDS: Magnesium 1GM/D5W 100ML PREMIX 100 ML IV SCH ×2 (11:34→12:44)
[2022-11-01 16:00] VITALS: BP 138/95
[2022-11-01] MEDS: ENSURE CLEAR 237 ML LIQUID (MIX BERRY) PO SCH (17:37)
[2022-11-01] MEDS: LEVOFLOXACIN (250MG) 250 MG TABLET PO SCH (17:39)
--- NOTE | 2022-11-01 17:40 | NUR ---
RN NOTES - HELD METOPROLOL AND HYDRALAZINE D/T DECREASED BP
--- NOTE | 2022-11-01 17:51 | NUR ---
RN NOTES - PATIENT IS COMPLAINING OF 10/10 LOWER ABDOMINAL PAIN, MORPHINE SULFATE 2 MG IVP GIVEN ORDERED. WILL CONTINUE TO MONITOR.
--- NOTE | 2022-11-01 19:25 | NUR ---
MS RN CLOSING NOTES PATIENT AWAKE IN BED ASLEEP, EASILY AWAKEN, RESPONSIVE, AOX4. ON ROOM AIR BREATHING EVEN WITHOUT DIFFICULTY. NO ACUTE DISTRESS OR SOB NOTED AT THIS TIME. STILL WITH IV ACCESS ON RAC G#20 RUNNING NS @ 75 ML/HR. PAIN MGT EFFECTIVE AT THIS TIME. ALL DUE MEDS GIVEN, ALL NEEDS MET. SAFETY MEASURES MAINTAINED: BED IN LOWEST AND LOCKED POSITION, BED ALARM ON, SIDE RAILS UP 2X, CALL LIGHT AND TRAY TABLE WITHIN EASY REACH. ENDORSED TO NARROW FABRIC LOOM FIXER NURSE.
--- NOTE | 2022-11-01 19:30 | NUR ---
MS RN OPENING NOTES - RECEIVED PATIENT RESTING IN BED, RESPONSIVE TO VERBAL STIMULI. ON AIRBORNE ISOLATION. A/O X3, BARELY OPENS EYES WHILE SPEAKING. BREATHING EVEN AND NON-LABORED ON ROOM AIR. NOT IN APPARENT DISTRESS. VERBALIZED IMPROVEMENT OF HER ABDOMINAL PAIN. HAS RIGHT ANTECUBITAL IV ACCESS #20G WITH NS RUNNING AT 75 ML/HR. NO S/S OF INFILTRATION NOTED. SAFETY PRECAUTIONS IN PLACE: BED LOCKED AND IN LOW POSITION, SIDE RAILS UP X2, CALL LIGHT WITHIN REACH. WILL CONTINUE PLAN OF CARE.
[2022-11-01 20:00] VITALS: BP 113/42
--- NOTE | 2022-11-01 22:39 | NUR ---
BLOOD GLUCOSE YESTERDAY 71 AND TODAY 64, STILL ON CLEAR LIQUIDS. NOTIFIED HOSPITALIST MAGDALENA. ORDERED TO CHANGE IVF TO D5NS 1L @75 ML/HR. NOTED AND CARRIED OUT. APPLE JUICE OFFERED.
[2022-11-01] MEDS: TRAZODONE 50 MG TABLET PO SCH (22:46)
[2022-11-01] MEDS: IV D5/ 0.9% NACL 1,000 ML IV PRN (22:49)
--- NOTE | 2022-11-01 23:30 | NUR ---
C/O SEVERE RIGHT ABDOMINAL QUADRANT PAIN 10/10. PRN MORPHINE 2MG ADMINISTERED. WILL CONTINUE TO MONITOR.
[2022-11-02 04:00] VITALS: BP 108/46
--- NOTE | 2022-11-02 06:49 | NUR ---
MS RN CLOSING NOTES - PATIENT SLEEPING, EASY TO AROUSE. ABLE TO VERBALIZE NEEDS. NO CARDIAC OR RESPIRATORY DISTRESS NOTED. KEPT ON AIRBORNE ISOLATION. DENIES PAIN AT THIS TIME. AFEBRILE. RIGHT ANTECUBITAL IV ACCESS INTACT, PATENT AND FLUSHING. ALL DUE MEDS GIVEN AND NEEDS ATTENDED. AMBULATORY WITH FWW AND ASSIST, NEEDS MINIMAL TO MODERATE ASSISTANCE WITH ADLS. SAFETY PRECAUTIONS MAINTAINED. WILL ENDORSE TO NEXT SHIFT FOR ALEJANDRA.
[2022-11-02 07:00] VITALS: BP 152/76
--- NOTE | 2022-11-02 07:18 | NUR ---
MS RN OPENING NOTES RECEIVED PATIENT AWAKE IN BED AWAKE, ALERT AND ORIENTED. AOX4. ABLE TO MAKE NEEDS KNOWN AND FOLLOW SIMPLE COMMANDS. ON ROOM AIR BREATHING EVEN WITHOUT DIFFICULTY. NO ACUTE DISTRESS OR SOB NOTED AT THIS TIME. IV ACCESS ON RAC G#20 RUNNING D5 NS @ 75 ML/HR. DENIES PAIN NOR DISCOMFORT AT THIS TIME. SAFETY MEASURES IN PLACE: BED IN LOWEST AND LOCKED POSITION, BED ALARM ON, SIDE RAILS UP 2X, CALL LIGHT AND TRAY TABLE WITHIN EASY REACH. WILL CONTINUE TO MONITOR.
[2022-11-02] MEDS: PANTOPRAZOLE 40 MG TABLET.DR PO SCH (07:36)
[2022-11-02] MEDS: ENSURE CLEAR 237 ML LIQUID (MIX BERRY) PO SCH ×2 (08:36→17:45)
[2022-11-02] MEDS: GABAPENTIN 300 MG CAPSULE PO SCH ×3 (08:41→17:44)
[2022-11-02] MEDS: OXCARBAZEPINE 150 MG TABLET PO SCH ×2 (08:44→17:44)
[2022-11-02] MEDS: LOSARTAN POTASSIUM 50 MG TABLET PO SCH (08:44)
[2022-11-02] MEDS: LEVETIRACETAM (250 MG) 250 MG TABLET PO SCH ×2 (08:44→17:44)
[2022-11-02] MEDS: METOPROLOL TARTRATE 50 MG TABLET PO SCH ×2 (08:45→17:45)
[2022-11-02] MEDS: hydrALAZINE HCL 50 MG TABLET PO SCH ×3 (08:45→17:44)
--- NOTE | 2022-11-02 08:50 | NUR ---
VALENTIN NOTES - PATIENT CANNOT COUGH SPUTUM AT THIS MOMENT. Addendum: 11/02/22 at 0901 by KARENA GIRARD RN SPUTUM INDUCTION ORDERED INSTEAD.
--- NOTE | 2022-11-02 08:53 | NUR ---
RN NOTES - PATIENT REFUSING TO ADVANCE DIET TO SOFT, PATIENT PREFERS CLEAR LIQUIDS FOR NOW.
[2022-11-02] MEDS: MORPHINE SULFATE INJ 2 MG/ML DISP.SYRIN IV PRN ×2 (11:57→18:16)
--- NOTE | 2022-11-02 11:58 | NUR ---
RN NOTES - PAIN MANAGEMENT PT COMPLAINING OF PAIN 10/10 ON PAIN SCALE ON THE R ABDOMEN AREA. GIVEN MORPHONE SULFATE 2 MG IV ORDERED,VS STABLE
--- NOTE | 2022-11-02 12:15 | NUR ---
RN NOTES - PATIENT REQUESTED TO PAUSE IVF SHE IS GOING TO THE BATHROOM FREQUENTLY, EXPLAINED BENEFITS AND CONSEQUENCES. PATIENT IS AWARE. VS STABLE AND PATIENT IS EATING.
[2022-11-02 16:00] VITALS: BP 148/76
[2022-11-02] MEDS: LEVOFLOXACIN (250MG) 250 MG TABLET PO SCH (17:45)
--- NOTE | 2022-11-02 18:17 | NUR ---
RN NOTES - PAIN MANAGEMENT PT COMPLAINING OF PAIN 8/10 ON PAIN SCALE ON THE R ABDOMEN AREA. GIVEN MORPHONE SULFATE 2 MG IV ORDERED,VS STABLE
--- NOTE | 2022-11-02 18:38 | NUR ---
RN NOTES - LAB CALLED THAT PREVIOUS SPUTUM SAMPLE WASNT ENOUGH, CALLED RT SAVANA TO TAKE SPUTUM INDUCTION ORDERED, SAMPLE TAKEN AND SENT TO THE LAB, CALLED LAB TO COLLECT.
--- NOTE | 2022-11-02 19:15 | NUR ---
RN NOTES - RAC G#20 IV ACCESS INFILTRATED, STARTED A NEW LINE AT G#22 PATENT, FLUSHING AND INFUSING WELL.
--- NOTE | 2022-11-02 19:30 | NUR ---
MS RN OPENING NOTES - RECEIVED PATIENT AWAKE IN BED. A/O X4. BREATHING EVEN AND NON-LABORED ON ROOM AIR. NO ACUTE DISTRESS NOTED. NO C/O PAIN OR DISCOMFORT AT THIS TIME. HAS RIGHT HAND IV ACCESS #22G WITH D5NS CURRENTLY NOT INFUSING PER PATIENT REQUEST. NO S/S OF INFILTRATION NOTED. SAFETY PRECAUTIONS IN PLACE: BED LOCKED AND IN LOW POSITION, SIDE RAILS UP X2, CALL LIGHT WITHIN REACH. WILL CONTINUE PLAN OF CARE.
--- NOTE | 2022-11-02 19:45 | NUR ---
MS RN CLOSING NOTES PATIENT AWAKE IN BED AWAKE, RESPONSIVE, AOX4. ON ROOM AIR BREATHING EVEN WITHOUT DIFFICULTY. NO ACUTE DISTRESS OR SOB NOTED AT THIS TIME. IV ACCESS ON RIGHT HAND G#22 SALINE LOCKED. PAIN MGT EFFECTIVE AT THIS TIME. ALL DUE MEDS GIVEN, ALL NEEDS MET. SAFETY MEASURES MAINTAINED: BED IN LOWEST AND LOCKED POSITION, BED ALARM ON, SIDE RAILS UP 2X, CALL LIGHT AND TRAY TABLE WITHIN EASY REACH. ENDORSED TO SKIDWAY WORKER NURSE.
[2022-11-02 20:00] VITALS: BP_SYST 134; BP_SYST 135; BP_DIAS 79
[2022-11-02] MEDS: TRAZODONE 50 MG TABLET PO SCH (21:31)
[2022-11-03] MEDS: IV D5/ 0.9% NACL 1,000 ML IV PRN ×2 (02:46→15:50)
--- NOTE | 2022-11-03 06:48 | NUR ---
MS RN CLOSING NOTES - PATIENT SLEEPING, EASY TO AROUSE BUT DROWSY. ABLE TO VERBALIZE NEEDS. NO SOB OR NOTED. NO ACUTE DISTRESS THROUGHOUT THE NIGHT. AFEBRILE. RIGHT HAND IV ACCESS INTACT, PATENT AND FLUSHING. D5NS RUNNING AT 75 ML/HR. WILL KEEP ON BED REST TO PREVENT FALL. ALL DUE MEDS GIVEN AND NEEDS ATTENDED. PERINEAL CARE RENDERED. SAFETY PRECAUTIONS MAINTAINED. WILL ENDORSE TO NEXT SHIFT FOR ALEJANDRA.
[2022-11-03 07:00] VITALS: BP 143/77
--- NOTE | 2022-11-03 07:00 | NUR ---
MS RN OPENING NOTES: RECEIVED PT IN BED ASLEEP, EASILY AROUSED WITH STIMULI. PT A/O X 4ABLE TO MAKE NEEDS KNOWN. NO SOB OR CARDIACD DISTRESS NOTED, ON ROOM AIR AND TOLERATING WELL. IV ACCESS ON RIGHT HAND GAUGE 22 PATENT, INTACT AND INFUSING D5NS @75ML/HR. SAFETY MEASURES MAINTAINED: BED LOCKED AND IN LOWEST POSITION, SIDE RAILS UP X 2. CALL LIGHT IN EASY REACH AND WILL MONITOR PT ACCORDINGLY.
[2022-11-03] MEDS: PANTOPRAZOLE 40 MG TABLET.DR PO SCH (07:30)
--- NOTE | 2022-11-03 08:30 | NUR ---
RN NOTES: RN ASKED THE PT IF SHE WANTED TO ADVANCE DIET TO SOFT,BECAUSE MD ORDERED TO ADVANCE DIET. PER PT SHE STATED SHE WANT TO TRY SOFT DIET AT LUNCH.
[2022-11-03] MEDS: ENSURE CLEAR 237 ML LIQUID (MIX BERRY) PO SCH ×2 (08:40→17:21)
[2022-11-03] MEDS: GABAPENTIN 300 MG CAPSULE PO SCH ×3 (09:06→16:29)
[2022-11-03] MEDS: LEVETIRACETAM (250 MG) 250 MG TABLET PO SCH ×2 (09:06→16:29)
[2022-11-03] MEDS: OXCARBAZEPINE 150 MG TABLET PO SCH ×2 (09:06→16:30)
[2022-11-03] MEDS: LOSARTAN POTASSIUM 50 MG TABLET PO SCH (09:07)
[2022-11-03] MEDS: hydrALAZINE HCL 50 MG TABLET PO SCH ×3 (09:07→16:32)
[2022-11-03] MEDS: METOPROLOL TARTRATE 50 MG TABLET PO SCH ×2 (09:07→16:31)
[2022-11-03] MEDS: MORPHINE SULFATE INJ 2 MG/ML DISP.SYRIN IV PRN ×3 (09:22→20:03)
[2022-11-03 16:00] VITALS: BP 110/61
[2022-11-03] MEDS: LEVOFLOXACIN (250MG) 250 MG TABLET PO SCH (16:34)
--- NOTE | 2022-11-03 18:37 | NUR ---
MS RN CLOSING NOTES: PT IN BED ASLEEP, EASILY AROUSED WITH STIMULI. PT A/O X 4ABLE TO MAKE NEEDS KNOWN. NO SOB OR CARDIAC DISTRESS NOTED, ON ROOM AIR AND TOLERATING WELL. ON PAIN MANAGEMENT ORDERED. ON NEGATIVE ISOLATION DUE TO R/O TB.IV ACCESS ON RIGHT HAND GAUGE 22 PATENT, INTACT AND INFUSING D5NS @75ML/HR. SAFETY MEASURES MAINTAINED: BED LOCKED AND IN LOWEST POSITION, SIDE RAILS UP X 2. CALL LIGHT IN EASY REACH AND WILL ENDORSED TO PET TRAINING INSTRUCTOR RN FOR CONTINUITY OF CARE.
--- NOTE | 2022-11-03 19:30 | NUR ---
MS RN OPENING NOTE RECEIVED PATIENT FROM AM NURSE; PATIENT IN BED, A/O X 4, ABLE TO MAKE NEEDS KNOWN; STABLE ON ROOM AIR, BREATHING EVENLY AND NO S/S OF DISTRESS NOTED; NEGATIVE ISOLATION MAINTAINED DUE TO THE REASON THAT PATIENT IS TO R/O TB; WITH IV ACCESS ON RIGHT HAND G#22 INFUSING WITH D5NS AT 75 ML/HR; SAFETY MEASURES IMPLEMENTED, BED LOCKED IN LOWEST POSITION, SIDE RAILS UP X 2, CALL LIGHT AND TABLE WITHIN REACH; WILL CONTINUE TO MONITOR THROUGHOUT SHIFT
[2022-11-03 20:00] VITALS: BP 112/55
--- NOTE | 2022-11-03 20:25 | NUR ---
MS RN NOTE PATIENT COMPLAINED OF PAIN AND ASKED FOR PAIN MEDICATION; ADMINISTERED MORPHINE PRN ORDERED; PATIENT TOLERATED WELL AND SHOWED NO S/S OF DISCOMFORT; WILL CONTINUE TO MONITOR PATIENT
[2022-11-03] MEDS: TRAZODONE 50 MG TABLET PO SCH (21:58)
[2022-11-04] MEDS: MORPHINE SULFATE INJ 2 MG/ML DISP.SYRIN IV PRN ×3 (01:22→12:23)
--- NOTE | 2022-11-04 01:52 | NUR ---
MS RN NOTE PATIENT USED CALL LIGHT AND INFORMED THE NEED FOR ANOTHER DOSE OF PAIN MEDICATION; NOTED TO BE RESTLESS AND WITH PRESENCE OF FACIAL GRIMACES; ADMINISTERED MORPHINE PRN ORDERED; PATIENT TOLERATED WELL AND WAS ABLE TO SLEEP COMFORTABLY; WILL CONTINUE TO MONITOR
[2022-11-04] MEDS: IV D5/ 0.9% NACL 1,000 ML IV PRN ×2 (03:25→19:38)
[2022-11-04 04:01] VITALS: BP 112/55
--- NOTE | 2022-11-04 06:54 | NUR ---
MS RN CLOSING NOTE PATIENT IN BED, A/O X 4, ABLE TO MAKE NEEDS KNOWN; STABLE ON ROOM AIR, BREATHING EVENLY AND NO S/S OF DISTRESS NOTED; NEGATIVE ISOLATION MAINTAINED DUE TO THE REASON THAT PATIENT IS TO R/O TB; WITH IV ACCESS ON RIGHT HAND G#22 INFUSING WITH D5NS AT 75 ML/HR; ADMINISTERED MEDICATIONS PRESCRIBED; PATIENT'S NEEDS ATTENDED; MONITORED PATIENT ACCORDINGLY; PATIENT STILL ON PAIN MANAGEMENT; SAFETY MEASURES IMPLEMENTED, BED LOCKED IN LOWEST POSITION, SIDE RAILS UP X 2, CALL LIGHT AND TABLE WITHIN REACH; WILL ENDORSE TO AM NURSE FOR ALEJANDRA.
--- NOTE | 2022-11-04 07:12 | NUR ---
MS RN OPENING NOTE RECEIVED PATIENT LYING IN BED, A/OX4, ABLE TO MAKE HER NEEDS KNOWN, ON RA, NO S/S OF RESPIRATORY DISTRESS, IV ACCESS ON RIGHT HAND, #22 WITH D5NS AT 75ML/HR, INTACT AND PATENT AND FLUSHING WELL, CONTINENT AND USES DIAPER, SKIN IS INTACT, ON SOFT DIET, AMBULATES WITH ASSISTANCE, FALL AND SAFETY MEASURES IN PLACE, BED IN LOW AND LOCK POSITION, CALL LIGHT AND TABLE WITHIN EASY REACH, SIDE RAILS UP X2.
[2022-11-04 08:00] VITALS: BP 122/71
[2022-11-04] MEDS: GABAPENTIN 300 MG CAPSULE PO SCH ×3 (08:53→16:30)
[2022-11-04] MEDS: LOSARTAN POTASSIUM 50 MG TABLET PO SCH (08:53)
[2022-11-04] MEDS: LEVETIRACETAM (250 MG) 250 MG TABLET PO SCH ×2 (08:53→16:29)
[2022-11-04] MEDS: OXCARBAZEPINE 150 MG TABLET PO SCH ×2 (08:54→16:31)
[2022-11-04] MEDS: hydrALAZINE HCL 50 MG TABLET PO SCH ×3 (08:54→16:30)
[2022-11-04] MEDS: METOPROLOL TARTRATE 50 MG TABLET PO SCH ×2 (08:55→16:29)
[2022-11-04] MEDS: PANTOPRAZOLE 40 MG TABLET.DR PO SCH (08:57)
[2022-11-04] MEDS: ENSURE CLEAR 237 ML LIQUID (MIX BERRY) PO SCH ×2 (09:00→17:12)
--- NOTE | 2022-11-04 12:26 | NUR ---
RN NOTE PATIENT C/O PAIN OF ABDOMEN, ADMINISTERED PRN MORPHINE ORDERED.
--- NOTE | 2022-11-04 13:06 | NUR ---
RN NOTE PATIENT REFUSED HYDRALAZINE MEDICATION SAYING BP IS GOOD.
[2022-11-04 16:00] VITALS: BP 122/70
[2022-11-04] MEDS: LEVOFLOXACIN (250MG) 250 MG TABLET PO SCH (16:31)
--- NOTE | 2022-11-04 18:39 | NUR ---
MS RN CLOSING NOTE PATIENT LYING IN BED, A/OX4, ABLE TO MAKE HER NEEDS KNOWN, STABLE ON RA, NO S/S OF RESPIRATORY DISTRESS, IV ACCESS ON RIGHT HAND, #22 WITH D5NS AT 75ML/HR, INTACT AND PATENT AND FLUSHING WELL, CONTINENT AND USES DIAPER, SKIN IS INTACT, ON SOFT DIET, AMBULATES WITH ASSISTANCE, FALL AND SAFETY MEASURES IN PLACE, BED IN LOW AND LOCK POSITION, CALL LIGHT AND TABLE WITHIN EASY REACH, SIDE RAILS UP X2. SCHEDULED MEDICATION ADMINISTERED, PATIENT WAS TURNED AND REPOSITIONED PER PROTOCOL, ALL NEEDS ATTENDED AND ANTICIPATED.
--- NOTE | 2022-11-04 19:10 | NUR ---
MS RN OPENING NOTE PATIENT IS SITTING IN BED SLEEPING AT HIGH WEISS POSITION. SHE IS EASILY BEING AROUSED. SHE IS ALERT AND ORIENTED, AO X 4. SHE IS ON RA, TOLERATED WELL. NO S/S OF DISTRESS OR SOB. IV SITE IS AT HER R HAND, #22G, INFUSING D5 NS @75 ML/HR. IV SITE IS PATENT AND INTACT, PT DENIES OF HAVING PAIN AT THIS MOMENT. NO NAUSEA OR VOMITING AT THIS MOMENT WELL. SAFETY MEASURES ARE IN PLACED: BED IN LOWEST AND LOCKED POSITION; SIDE RAILS UP X 2; CALL LIGHT AND TABLE ARE WITHIN REACH. WILL CONTINUE MONITORING THE PT AND PROVIDE THE CARE PT NEEDS.
[2022-11-04 20:00] VITALS: BP 97/59
[2022-11-04] MEDS: TRAZODONE 50 MG TABLET PO SCH (22:08)
--- NOTE | 2022-11-04 22:08 | NUR ---
MS RN NOTE TOOK THE MEDICATION, TRAZODONE HYDROCHLORIDE 50 MG / TAB, TWO TIMES FROM THE OMNICE. FIRST TIME, ONLY TOOK OUT TWO PILLS. [facility]. TOTAL IS 3 PILLS, 150 MG FOR THIS PT PER MD ORDER.
[2022-11-05] MEDS: IV D5/ 0.9% NACL 1,000 ML IV PRN (05:01)
[2022-11-05] MEDS: MORPHINE SULFATE INJ 2 MG/ML DISP.SYRIN IV PRN ×2 (06:13→10:47)
--- NOTE | 2022-11-05 07:09 | NUR ---
MS RN OPENING NOTES RECEIVED PATIENT AWAKE IN BED, A/Ox4. ON ROOM AIR, NO S/S OF RESPIRATORY DISTRESS OR DISCOMFORT. IV ACCESS R HAND #22G RUNNING D5NS @75 ML/HR. INTACT AND PATENT. PATIENT HAS PUREWICK. SKIN INTACT. NO S/S OF PAIN OR DISCOMFORT. SAFETY MEASURES IN PLACE: BED LOCKED AND IN LOWEST POSITION, HOB ELEVATED, CALL LIGHT WITHIN REACH, SIDE RAILS UPx2. WILL CONTINUE TO MONITOR.
--- NOTE | 2022-11-05 07:32 | NUR ---
MS RN CLOSING NOTE PATIENT IS SITTING IN BED SLEEPING AT HIGH WEISS POSITION. SHE IS EASILY BEING AROUSED. SHE IS ALERT AND ORIENTED, AO X 4. SHE IS ON RA, TOLERATED WELL. NO S/S OF DISTRESS OR SOB. IV SITE IS AT HER R HAND, #22G, INFUSING D5 NS @75 ML/HR. IV SITE IS PATENT AND INTACT, PT DENIES OF HAVING PAIN AT THIS MOMENT. NO NAUSEA OR VOMITING AT THIS MOMENT WELL. SAFETY MEASURES ARE IN PLACED: BED IN LOWEST AND LOCKED POSITION; SIDE RAILS UP X 2; CALL LIGHT AND TABLE ARE WITHIN REACH. ENDORSED NEXT SHIFT NURSE FOR CONTINUING PT CARE.
[2022-11-05] MEDS: LOSARTAN POTASSIUM 50 MG TABLET PO SCH (08:04)
[2022-11-05] MEDS: OXCARBAZEPINE 150 MG TABLET PO SCH (08:04)
[2022-11-05] MEDS: LEVETIRACETAM (250 MG) 250 MG TABLET PO SCH (08:04)
[2022-11-05] MEDS: ENSURE CLEAR 237 ML LIQUID (MIX BERRY) PO SCH (08:04)
[2022-11-05] MEDS: GABAPENTIN 300 MG CAPSULE PO SCH (08:04)
[2022-11-05] MEDS: PANTOPRAZOLE 40 MG TABLET.DR PO SCH (08:04)
[2022-11-05] MEDS: METOPROLOL TARTRATE 50 MG TABLET PO SCH (08:05)
[2022-11-05] MEDS: hydrALAZINE HCL 50 MG TABLET PO SCH (08:05)
[2022-11-05 08:18] VITALS: BP 158/86
--- NOTE | 2022-11-05 11:10 | NUR ---
RN NOTES PATIENT COMPLAINED OF PAIN OF ABDOMEN, PRN MORPHINE ADMINISTERED. ATTEMPTED TO CALL [facility] TO GIVE REPORT BUT PHONE NUMBER [phone] NOT WORKING, SAYS NOT IN SERVICE, RATE CLERK PASSENGER DONELL NOTIFIED.
--- NOTE | 2022-11-05 13:00 | NUR ---
CANCELLATION CLERK NOTES PATIENT D/C TO SNF. REPORT GIVEN TO VALENTIN PAK AT [facility]. PATIENT STABLE ON ROOM AIR, A/Ox4 ABLE TO MAKE NEEDS KNOWN. PATIENT SKIN INTACT. ALL FORMS SIGNED AND FILED INTO CHART. PATIENT IV ACCESS REMOVED, PRESSURE DRESSING APPLIED. ID BAND REMOVED. PATIENT VERBALIZED ALL UNDERSTANDING FOR DISCHARGE. PATIENT LEFT UNIT @1238 ACCOMPANIED BY TWO tutoring assistant [employer]IA [employer]. CHARGE NURSE AND MD AWARE OF DISCHARGE.
== END 2022-11-05 12:40 | DRG 205 ==
LOC: ER 17:06 → MED 10-28 00:15
PROVIDERS: ADMIT Nurse Practitioner Acute Care; ATTEND Internal Medicine
DX: J98.4 Other disorders of lung (principal); I71.02 Dissection of abdominal aorta; J98.11 Atelectasis; E87.1 Hypo-osmolality and hyponatremia; G90.50 Complex regional pain syndrome I, unspecified; R91.8 Other nonspecific abnormal finding of lung field; K74.60 Unspecified cirrhosis of liver; G89.4 Chronic pain syndrome; Z20.822 Contact with and (suspected) exposure to COVID-19; J43.2 Centrilobular emphysema; D69.6 Thrombocytopenia, unspecified; D64.9 Anemia, unspecified; Z90.710 Acquired absence of both cervix and uterus; K21.9 Gastro-esophageal reflux disease without esophagitis; G47.00 Insomnia, unspecified; Z86.19 Personal history of other infectious and parasitic diseases; Z87.891 Personal history of nicotine dependence; R19.7 Diarrhea, unspecified; F41.9 Anxiety disorder, unspecified; I86.4 Gastric varices; I70.0 Atherosclerosis of aorta
CPT/HCPCS: 36415; 71045-TC; 71250-TC; 74018; 80048-TC; 80053-TC; 80076-TC; 81001; 83605-TC; 83690-TC; 83735-TC; 84100-TC; 85025-TC; 85730-TC; 86480; 87040-TC; 87081-TC; 87116; 87206; A4216; A4223; C9113; C9803; G0378; J0456; J0696; J1170; J1956; J2270; J2405; J3475; J7030; J7042; J7050; J7060; J8597; Q9967

== ENCOUNTER → 2024-11-27 | Emergency (ER) | payer MEDICARE, OTHER ==
[~2024-11-27] VITALS: Ht 157.5 cm; Wt 56.2 kg
[~2024-11-27] MED LIST changes: +ACET-868 PO; +ASPI-1420 PO; +ATOR40TA PO; +BISA10SU11 RC; +CLON0.1T PO; +CRAN250C PO; +DONE5TAB34 PO; +GABA300C PO; +HYDR-4076 PO; +HYDR-4077 PO; +HYDR-4303 PO; +IPRA3AMP22 IH; +LEVE500T20 PO; -LEVO750T46 PO; +LOSA100T31 PO; +LOSA50TA39 PO; +MAGN400O6 PO; -METO-295 PO; +METO-357 PO; +METO50TA16 PO; +NA P133E RC; +NITR100C6 PO; -ONDA4TAB11 PO; +OXCA300T15 PO; +PANT40TA49 PO; +SERT50TA PO; +TEMA15CA PO; +TRAZ150T75 PO; +ZOLP10TA2 PO; +[UNRECOGNIZED DRUG - CODE] PO
[2024-11-27 13:58] VITALS: BP 168/74; TEMP 98.1; O2SAT 97
[2024-11-27 14:58] LABS: BASOPHILS % (AUTO) 0.4 % (0.0-2.0); EOSINOPHILS # (AUTO) 0.1 K/uL (0.0-0.7); EOSINOPHILS % (AUTO) 1.7 % (0.0-6.0); HEMATOCRIT 40 % (33-45); HEMOGLOBIN 13.2 g/dL (11.5-14.8); LYMPHOCYTES % (AUTO) 44.8 % (20.0-44.0); MEAN CORPUSCULAR HEMOGLOBIN 30 PG (26.0-33.0); MEAN CORPUSCULAR HGB CONC 33 g/dl (31.0-36.0); MEAN CORPUSCULAR VOLUME 91 fL (82-100); MONOCYTES # (AUTO) 0.4 K/uL (0.1-1.30); MONOCYTES % (AUTO) 5.8 % (2.0-12.0); NEUTROPHILS # (AUTO) 3.2 K/uL (1.8-8.9); NEUTROPHILS % (AUTO) 47.3 % (43.0-81.0); PLATELET COUNT (AUTO) 190 K/uL (150-450); RED BLOOD CELL COUNT(AUTO) 4.36 MIL/uL (4.0-5.2); RED CELL DISTRIBUTION WIDTH 20.9 % (11.5-15.0); WHITE BLOOD COUNT (AUTO) 6.7 K/uL (4.3-11.0)
[2024-11-27 15:09] LABS: CALCIUM, SERUM 9.3 mg/dL (8.5-10.1); CARBON DIOXIDE 25 mmol/L (21-32); CHLORIDE 101 mmol/L (98-107); CREATININE 0.7 mg/dL (0.6-1.3); GLUCOSE 100 mg/dL (74-106); SODIUM SERUM 134 mmol/L (136-145); UREA NITROGEN, BLOOD 15 mg/dL (7-18)
[2024-11-27 15:23] LABS: ALANINE AMINOTRANSFERASE 30 U/L (12-78); ALBUMIN 3.6 g/dL (3.4-5.0); ALCOHOL, BLOOD < 3 mg/dL (0-10); ALKALINE PHOSPHATASE 145 U/L (46-116); ASPARTATE AMINOTRANSFERASE 36 U/L (15-37); BILIRUBIN,DIRECT 0.2 mg/dL (0.0-0.2); BILIRUBIN,TOTAL 0.5 mg/dL (0.2-1.0); TOTAL PROTEIN, SERUM 8.6 g/dL (6.4-8.2)
[2024-11-27 15:24] LABS: ACETAMINOPHEN <10 ug/ml (10-30); SALICYLATE 0.9 mg/dL (2.8-20.0)
[2024-11-27 16:43] LABS: APPEARANCE,URINE CLEAR (CLEAR); BILIRUBIN,URINE NEGATIVE (NEGATIVE); BLOOD, URINE NEGATIVE Ery/uL (NEGATIVE); COLOR,URINE YELLOW (YELLOW); KETONES,URINE 1+ mg/dL (NEGATIVE); LEUKOCYTE ESTERASE ,URINE NEGATIVE (NEGATIVE); NITRITE, URINE NEGATIVE (NEGATIVE); PROTEIN,URINE TRACE mg/dl (NEGATIVE); UGLUCOSE NEGATIVE (NEGATIVE)
[2024-11-27 16:54] LABS: AMPHETAMINE, URINE NEGATIVE (NEGATIVE); BARBITURATE, URINE NEGATIVE (NEGATIVE); BENZODIAZEPINE, URINE NEGATIVE (NEGATIVE)
[2024-11-27 16:55] LABS: CANNABINOID, URINE POSITIVE (NEGATIVE); COCCAINE, URINE NEGATIVE (NEGATIVE); OPIATE, URINE POSITIVE (NEGATIVE); PHENCYCLIDINE SCREEN,URINE NEGATIVE (NEGATIVE)
[2024-11-27 16:56] LABS: ADD URINE CULTURE NO; BACTERIA,URINE Rare /HPF (None Seen); MUCUS,URINE Few /LPF (None Seen); RBC,URINE 0-2 /HPF (0-2); WBC,URINE 0-2 /HPF (0-3)
== END ==
LOC: ER 13:45
DX: R45.851 Suicidal ideations (principal); F32.A Depression, unspecified; G40.909 Epilepsy, unspecified, not intractable, without status epilepticus; K21.9 Gastro-esophageal reflux disease without esophagitis; F19.10 Other psychoactive substance abuse, uncomplicated; G89.4 Chronic pain syndrome; M19.90 Unspecified osteoarthritis, unspecified site; Z79.899 Other long term (current) drug therapy; Z86.19 Personal history of other infectious and parasitic diseases; Z87.440 Personal history of urinary (tract) infections
CPT/HCPCS: 36415; 80048-TC; 80076-TC; 81001; 85025-TC; G0480